=== PATIENT | male | born 1990 | race Caucasian/White ===

== ENCOUNTER 2017-09-23 17:07 | Emergency (ER) | payer OTHER, SELFPAY ==
[2017-09-23] MEDS ORDERED: Ibuprofen 800 MG TAB ONE (17:17)
--- NOTE | 2017-09-23 18:54 | RAD ---
RIGHT HAND THREE VIEWS: HISTORY: Pain. Crush injury. COMPARISON: None. FINDINGS: Joint spaces are preserved. No fracture. No cortical irregularity. No periosteal reaction. IMPRESSION: No fracture. POS: PPP
== END 2017-09-23 18:18 | disposition home or self-care (01) ==
LOC: NAV ERS 17:07
DX: S60.221A Contusion of right hand, initial encounter (principal); W23.0XXA Caught, crushed, jammed, or pinched between moving objects, initial encounter
CPT/HCPCS: 99001